=== PATIENT | female | born 1955 | race Caucasian/White ===

== ENCOUNTER 2022-07-31 20:59 | Emergency (ER) | payer MEDICARE, BC ==
[~2022-07-31] VITALS: Ht 170.2 cm; Wt 79.4 kg
[2022-07-31] MEDS ORDERED: IBUPROFEN 600 MG TABLET PO ONE (21:30)
[2022-08-01] MEDS ORDERED: IBUPROFEN 600 MG TABLET PO ONE (03:30)
[2022-08-01] MEDS ORDERED: METH-662 PO (03:54)
[2022-08-01] MEDS ORDERED: DICL35CA3 PO (03:54)
[2022-08-01 03:59] VITALS: BP 147/62
== END 2022-08-01 04:04 | disposition home or self-care (01) ==
LOC: EDH 20:59
DX: S33.8XXA Sprain of other parts of lumbar spine and pelvis, initial encounter (principal); S30.0XXA Contusion of lower back and pelvis, initial encounter; Z88.5 Allergy status to narcotic agent; Z90.710 Acquired absence of both cervix and uterus; W13.3XXA Fall through floor, initial encounter; Y93.01 Activity, walking, marching and hiking; Y92.89 Other specified places as the place of occurrence of the external cause; Y99.8 Other external cause status
CPT/HCPCS: 72110; 73521